=== PATIENT | female | born 1965 | race Caucasian/White ===

== ENCOUNTER → 2018-08-29 09:43 | Outpatient (CLI) | payer OTHER | END | disposition home or self-care (01) | LOC: D.RAD 09:43 | DX: Z02.71 Encounter for disability determination (principal) ==

== ENCOUNTER → 2018-11-10 14:33 | Outpatient (CLI) | payer BC | END | disposition home or self-care (01) | LOC: D.RAD 14:33 | DX: J01.90 Acute sinusitis, unspecified (principal) ==

== ENCOUNTER → 2018-11-17 19:42 | Outpatient (CLI) | payer BC | END | disposition home or self-care (01) | LOC: D.MAMMO 11-03 13:00 | DX: Z12.31 Encounter for screening mammogram for malignant neoplasm of breast (principal) ==

== ENCOUNTER → 2020-03-18 19:32 | Outpatient (CLI) | payer BC | END | disposition home or self-care (01) | LOC: D.MAMMO 11:15 | PROVIDERS: ATTEND Family Medicine | DX: Z12.31 Encounter for screening mammogram for malignant neoplasm of breast (principal) ==